=== PATIENT | male | born 1985 | race Caucasian/White ===

== ENCOUNTER 2016-10-09 10:13 | Day surgery (SDC) | payer OTHER ==
[2016-10-08 10:58] VITALS: BMI 18.2
[2016-10-09] MEDS ORDERED: SUCCINYLCHOLINE CHLORIDE 200 MG/10 ML VIAL ONE (13:59)
[2016-10-09] MEDS ORDERED: MIDAZOLAM HCL 2 MG/2 ML SINGLE DOSE VIAL ONE (13:59)
[2016-10-09] MEDS ORDERED: PROPOFOL 20 ML ONE (13:59)
[2016-10-09] MEDS ORDERED: ONDANSETRON 4 MG/2 ML VIAL IVPUSH PRN (14:13)
[2016-10-09] MEDS ORDERED: PROMETHAZINE HCL 25 MG/1 ML VIAL IVPUSH PRN (14:13)
[2016-10-09] MEDS ORDERED: LACTATED RINGERS SOLUTION 1,000 ML IV SCH (14:15)
[2016-10-09] MEDS ORDERED: ceFAZolin SODIUM 1 GM VIAL ONE (14:28)
[2016-10-09] MEDS ORDERED: DEXAMETHASONE SOD PHOSPHATE 4 MG/1 ML VIAL ONE (14:36)
[2016-10-09] MEDS ORDERED: ceFAZolin SODIUM 1 GM VIAL IVPB ONE (14:36)
[2016-10-09] MEDS ORDERED: KETOROLAC TROMETHAMINE 30 MG/1 ML VIAL ONE (14:36)
[2016-10-09] MEDS ORDERED: GENTAMICIN 80MG PREMIX BAG IVPB ONE (14:39)
[2016-10-09] MEDS ORDERED: GENTAMICIN SO4 80 MG/2 ML VIAL ONE (14:39)
[2016-10-09] MEDS ORDERED: ACETAMINOPHEN 325 MG TABLET (FP) PO PRN (15:21)
[2016-10-09] MEDS ORDERED: HYDROmorphone HCL CARPU-JECT 2 MG/1 ML DISP.SYRIN IM ONE (15:21)
[2016-10-09] MEDS ORDERED: HYDROmorphone HCL CARPU-JECT 2 MG/1 ML DISP.SYRIN ONE (16:25)
[2016-10-09] MEDS ORDERED: oxyCODONE HCL 5 MG TABLET PO PRN (16:31)
[2016-10-09] MEDS ORDERED: oxyCODONE HCL 5 MG TABLET ONE (16:33)
[2016-10-09 17:48] VITALS: TEMP 98.3
[2016-10-09 18:34] VITALS: BP 129/62; PULSE 67
--- NOTE | 2016-10-09 20:58 | HP ---
DATE OF ADMISSION: 10/09/2016 HISTORY OF PRESENT ILLNESS: The patient is a 30-year-old male with history of right renal colic, right hydronephrosis, and chronic right flank pain. This is intermittent in nature. He denies any trauma. Denies any voiding symptoms. CAT scan revealed right renal stone measuring 5-mm in the distal ureter as well as a 4-mm stone in the renal pelvis. Urinalysis has been positive for blood. PTH level is 49. BUN and creatinine are 50/1. PHYSICAL EXAMINATION: CHEST: Clear. ABDOMEN: Soft. There is right CVA tenderness. GENITALIA: Atraumatic. Testes normal in size and consistency. No hernias or hydroceles were elicited. Prostate is 1+, smooth, benign, nontender. Phallus circumcised, meatus adequate. IMPRESSION: At present, right hydronephrosis, right ureteral stone. PLAN: Cystoscopy, right ureteroscopic laser lithotripsy with placement of a JJ stent. Alexandra [id number]
--- NOTE | 2016-10-10 05:38 | OP ---
DATE OF OPERATION: 10/09/2016 PREOPERATIVE DIAGNOSIS: Right hydronephrosis, right renal stone, and right ureteral stone. OPERATIVE PROCEDURE: Cystourethroscopy, right retrograde pyelogram, right ureteroscopic stone manipulation, and placement of bilateral JJ stents. ANESTHESIA: General DESCRIPTION OF PROCEDURE: Under above stated anesthesia, the patient is prepped and draped in the usual sterile manner. He is placed in the dorsal lithotomy position. Cystoscopy revealed mild prostatic hypertrophy. The bladder was entered. Urine was collected for culture and sensitivity. Inspection of the bladder revealed normal bladder mucosa. Ureteral orifices were within normal limits. Efflux of clear urine was seen on the left. None was seen on the right. A Flexi-Tip catheter was placed in the right ureteral orifice, and a retrograde pyelogram was performed. This revealed a filling defect in the right mid ureter with proximal hydroureteronephrosis. A Glidewire was passed up the right renal unit. The cystoscope was removed. A ureteroscope was inserted. Ureteroscopy was performed in the usual fashion. At the level of the mid ureter, a stone was seen, which migrated up to the renal pelvis. Ureteroscopy of the renal pelvis was unable to find the stone. Therefore, the ureteroscope was removed. A 22-cm 6-[place] JJ stent was left in place. X-rays confirmed good position of the stent. The patient tolerated the procedure well. He returned to the recovery room in good condition. Alexandra [id number]
== END 2016-10-09 18:38 | disposition home or self-care (01) ==
LOC: JASU-SURG 10:13
PROVIDERS: ATTEND Urology
PROC: 0T768DZ Dilation of Right Ureter with Intraluminal Device, Via Natural or Artificial Opening Endoscopic (ICD-10-PCS; principal; 2016-10-09 12:00)
PROC: BT1DZZZ Fluoroscopy of Right Kidney, Ureter and Bladder (ICD-10-PCS; 2016-10-09 12:00)
DX: N20.0 Calculus of kidney (principal); N20.1 Calculus of ureter
CPT/HCPCS: 76000-TC; 87086; 94760